=== PATIENT | female | born 1960 | race Caucasian/White ===

== ENCOUNTER 2018-03-27 13:19 | Outpatient (CLI) | payer OTHER ==
--- NOTE | 2018-03-27 16:11 | MRI ---
LUMBAR SPINE MRI WITOUT IV CONTRAST: HISTORY: A 57-year-old female with a history of M54.16, lumbar radiculopathy, low back pain, and pain down rig ht leg for 3 months. FINDINGS: Multiplanar, multisequence MRI examination of the lumbar spine is performed. The conus medullaris re gion is unremarkable terminating at the lower L1 level. There is a somewhat poorly defined T2 hyperi ntense, T1 hypointense focus within the posterior aspect of the mid right kidney, statistically a cys t, but no adequately characterized on this study. Generalized disk desiccation changes and ligament and facet hypertrophy changes throughout. L1-L2: There is very slight thinning of the lateral recesses without central canal or foraminal sten osis. L2-L3: There are ligament and facet hypertrophy changes with mild to moderate bilateral recess steno sis and mild bilateral foraminal stenosis. L3-L4: No significant central canal, lateral recess, or foraminal stenosis. L4-L5: There is a diffuse disk bulging with disk desiccation changes with moderate central canal and bilateral recess stenosis and bilateral foraminal stenosis. L5-S1: Focal central and right central disk extrusion with mild central canal stenosis as well as so me depression of the right S1 nerve root. IMPRESSION: Focal right central protrusion/extrusion at L5-S1 with some right S1 nerve root depression as well as associated canal and lateral recess stenosis and left paracentral annular fissure. Canal, lateral r ecess, and foraminal stenosis at L4-L5. Bilateral recess stenosis at L2-L3. Other findings as above . POS: [facility]
== END 2018-03-27 13:20 | disposition home or self-care (01) ==
LOC: TBSIIMAG 13:19
PROVIDERS: ATTEND Neurological Surgery
DX: M51.16 Intervertebral disc disorders with radiculopathy, lumbar region (principal); M51.27 Other intervertebral disc displacement, lumbosacral region; M48.061 Spinal stenosis, lumbar region without neurogenic claudication; M48.07 Spinal stenosis, lumbosacral region
CPT/HCPCS: 72148

== ENCOUNTER 2019-03-14 09:08 | Outpatient (CLI) | payer OTHER ==
--- NOTE | 2019-03-14 17:16 | RAD ---
CERVICAL SPINE: 03/14/19 Four views. HISTORY: Cervical spondylosis. Lateral views were taken with neutral flexion and extension. Cervical vertebrae maintain height. Loss of disc space at C5-6 and C6-7. Mild anterior osteophytes at these levels and posterior spondylo sis at both of these levels. Slight anterolisthesis at C3-4 and C4-5. This appears to correct with extension and is slightly exace rbated with flexion. IMPRESSION: Degenerative changes of cervical spine as described. POS: [facility]
== END 2019-03-14 09:09 | disposition home or self-care (01) ==
LOC: RAD 09:08
PROVIDERS: ATTEND Specialist
DX: M47.812 Spondylosis without myelopathy or radiculopathy, cervical region (principal)
CPT/HCPCS: 72040

== ENCOUNTER 2021-09-02 12:24 | Outpatient (CLI) | payer OTHER | END 2021-09-02 12:25 | disposition home or self-care (01) | LOC: BICRAD 12:24 | PROVIDERS: ATTEND Podiatrist | DX: M25.572 Pain in left ankle and joints of left foot (principal); M10.00 Idiopathic gout, unspecified site ==

== ENCOUNTER 2022-05-04 14:33 | Outpatient (CLI) | payer OTHER | END 2022-05-04 14:34 | disposition home or self-care (01) | LOC: SCSMRI 14:33 | PROVIDERS: ATTEND Podiatrist | DX: M25.572 Pain in left ankle and joints of left foot (principal); M24.873 Other specific joint derangements of unspecified ankle, not elsewhere classified; M10.9 Gout, unspecified; M79.672 Pain in left foot; S93.402A Sprain of unspecified ligament of left ankle, initial encounter; S96.912A Strain of unspecified muscle and tendon at ankle and foot level, left foot, initial encounter ==

== ENCOUNTER 2024-01-26 13:31 | Outpatient (CLI) | payer OTHER | END 2024-01-26 13:32 | disposition home or self-care (01) | LOC: SCSMRI 13:31 | PROVIDERS: ATTEND Nurse Practitioner Family | DX: M51.16 Intervertebral disc disorders with radiculopathy, lumbar region (principal); M47.26 Other spondylosis with radiculopathy, lumbar region; M47.817 Spondylosis without myelopathy or radiculopathy, lumbosacral region; M48.061 Spinal stenosis, lumbar region without neurogenic claudication | CPT/HCPCS: 72148 ==